=== PATIENT | female | born 1950 | race Caucasian/White ===

== ENCOUNTER → 2016-11-05 17:46 | Outpatient (CLI) | payer MEDICARE | END | disposition home or self-care (01) | LOC: D.MAMMO 09-25 09:30 | DX: Z12.31 Encounter for screening mammogram for malignant neoplasm of breast (principal) ==

== ENCOUNTER → 2017-02-27 08:27 | Outpatient (CLI) | payer MEDICARE | END | disposition home or self-care (01) | LOC: D.RAD 08:27 | DX: K21.9 Gastro-esophageal reflux disease without esophagitis (principal); R10.13 Epigastric pain; R07.0 Pain in throat ==

== ENCOUNTER → 2017-03-15 07:40 | Outpatient (CLI) | payer MEDICARE | END | disposition home or self-care (01) | LOC: D.CT 07:40 | DX: M54.2 Cervicalgia (principal) ==

== ENCOUNTER → 2017-12-26 16:50 | Outpatient (CLI) | payer MEDICARE | END | disposition home or self-care (01) | LOC: D.MAMMO 10:30 | DX: Z12.31 Encounter for screening mammogram for malignant neoplasm of breast (principal) ==

== ENCOUNTER → 2018-11-17 08:19 | Outpatient (CLI) | payer MEDICARE ==
--- NOTE | 2018-11-19 10:39 | ST ---
PATIENT:CLEM FITZPATRICK MEDICAL RECORD: [id number] SEX: F LOCATION:[facility] ORDER #: ADMISSION DATE: 11/17/18 AGE OF PATIENT: 68 REFERRING PHYSICIAN: INTERPRETING PHYSICIAN: ANGEL GARCIA MD DATE OF SERVICE: 11/17/2018 Nuclear Stress Test INDICATIONS: Angina, hypertension, hyperlipidemia, family history of coronary artery disease. She was exercised on standard Giovani protocol for 7-1/2 minutes, terminated due to achievement of maximum target heart rate response with 29 mCi of sestamibi injected at peak stress, 8 mCi was used previously for rest images. FINDINGS: There is a perfusion defect anteriorly, it is overall fixed, this very well may be artifactual from breast artifact. There is no reversibility. The remaining segments showed homogeneous uptake at rest and stress. OVERALL IMPRESSION: Overall normal nuclear stress test. There is a fixed perfusion defect anteriorly. It is most likely breast artifact. No evidence of reversible ischemia. The remaining segments are with homogeneous uptake at rest and stress with ejection fraction preserved at 67%. Continue medical management of the coronary artery disease and cardiac risk factors. TRANSINT:[id number] Voice Confirmation ID: [id number] DOCUMENT ID: [id number] ANGEL GARCIA MD at 1039 CC: [id number] DICTATION DATE: 11/17/18 1557 SYSTEM DISPATCHER: 11/18/18 0540 [facility] CLI 11/17/18 [id number] [place] [address]
== END | disposition home or self-care (01) ==
LOC: D.HCCARDIO 08:19
PROVIDERS: ATTEND Internal Medicine Cardiovascular Disease
DX: R07.9 Chest pain, unspecified (principal)

== ENCOUNTER 2019-06-02 08:00 | Outpatient (CLI) | payer MEDICARE | END 2019-06-02 23:59 | disposition home or self-care (01) | LOC: D.MAMMO 08:00 | PROVIDERS: ATTEND Family Medicine | DX: Z12.31 Encounter for screening mammogram for malignant neoplasm of breast (principal) ==

== ENCOUNTER → 2020-01-07 08:09 | Outpatient (CLI) | payer MEDICARE | END | disposition home or self-care (01) | LOC: D.MRI 08:09 | PROVIDERS: ATTEND Family Medicine | DX: M54.41 Lumbago with sciatica, right side (principal) ==